=== PATIENT | female | born 1985 | race Caucasian/White ===

== ENCOUNTER 2019-01-24 14:50 | Emergency (ER) | payer SELFPAY ==
[~2019-01-24] VITALS: Ht 154.9 cm; Wt 69.9 kg
--- OUTSIDE RECORDS SUMMARY | 2019-01-24 14:52 | XMS REPORT | Clinical Summary ---
Author Author [facility] Address Unknown Phone Unavailable Care Team Providers Care Psych Social Worker Name Role Phone Asked, No Pcp PCP Unavailable Allergies No Known Allergies Medications Not on file Active Problems Not on file Encounters Care Team Description Date Type Specialty Holden Burnham MD Strep throat (Primary Dx) 04/06/2018 Emergency Emergency Medicine after 01/23/2018 Social History Date Tobacco Use Types Packs/Day Years Used Never Assessed Sex Assigned at Date Recorded Not on file Industry Job Start Date Occupation Not on file Not on file Not on file Travel End Travel History Travel Start No recent travel history available. Last Filed Vital Signs Reading Time Taken Comments Vital Sign 121/80 04/06/2018 7:38 PM SENIOR AUDITOR Blood Pressure 95 04/06/2018 7:38 PM SENIOR AUDITOR Pulse 36.8 C (98.2 F) 04/06/2018 7:38 PM SENIOR AUDITOR Temperature 16 04/06/2018 7:38 PM SENIOR AUDITOR Respiratory Rate 96% 04/06/2018 7:38 PM SENIOR AUDITOR Oxygen Saturation - - Inhaled Oxygen Concentration - - Weight 154.9 cm (5' 1") 04/06/2018 7:38 PM SENIOR AUDITOR Height - - Body Mass Index Plan of Treatment Not on file Results Not on fileafter 01/23/2018 Advance Directives For more information, please contact: [phone] Patient Inner Tube Inserter Explanation Type Date Recorded Advance Directives, Living Will and Medical Power of Minute Clerk
--- OUTSIDE RECORDS SUMMARY | 2019-01-24 14:52 | XMS REPORT | Clinical Summary ---
Author Author [facility] Organization [facility] Address Unknown Phone Unavailable Care Team Providers Care Mechanical Press Operator Name Role Phone PCP Unavailable Allergies No Known Allergies Medications End Date Status Medication Sig Dispensed Refills Start Date Active albuterol 90 Inhale 2 1 Inhaler 0 mcg/actuation Puffs by 8 inhalerIndications: Upper mouth every 4 respiratory tract hours as infection, unspecified needed for type Wheezing or Shortness of Breath. Active loratadine (CLARITIN) 10 Take 1 tablet 28 tablet 0 mg tabletIndications: by mouth 8 Upper respiratory tract daily. infection, unspecified type Active intrauterine copper 1 Device by 0 contraceptive (PARAGARD) Intrauterine 1 380 square mm IUD route daily . Active acetaminophen (TYLENOL) Take 1 tablet 50 tablet 0 500 mg tabletIndications: by mouth 8 Chronic tension-type every 6 hours headache, not intractable as needed for Pain. Active busPIRone (BUSPAR) 15 mg Take 1 tablet 84 tablet 0 tabletIndications: by mouth 2 8 Moderately severe times daily. depression Active DULoxetine (CYMBALTA) 30 Take 1 56 capsule 0 mg delayed release capsule by 8 capsuleIndications: mouth 2 times Moderately severe daily. depression Active traZODone (DESYREL) 100 Take 2 56 tablet 0 mg tabletIndications: tablets by 8 Moderately severe mouth nightly depression at bedtime as needed for Sleep. 02/01/2018 sulfamethoxazole-trimetho Take 1 tablet 14 tablet 0 prim (BACTRIM DS) 800-160 by mouth 2 8 mg per tabletIndications: times daily Urinary tract infection for 7 days. without hematuria, site unspecified 02/08/2018 Discontinued sertraline (ZOLOFT) 50 mg Take 0.5 28 tablet 0 tabletIndications: tablets by 8 Moderately severe mouth daily depression 25 mg times 1 week. Increase to 50 mg thereafter.. 02/04/2018 hydrOXYzine (ATARAX) 25 Take 1 tablet 42 tablet 0 mg tabletIndications: by mouth 3 8 Anxiety times daily as needed for up to 10 days for Anxiety. 03/02/2018 Discontinued sertraline (ZOLOFT) 50 mg Take 0.5 28 tablet 0 tabletIndications: tablets by 8 Moderately severe mouth daily depression 25 mg times 1 week. Increase to 50 mg thereafter.. 02/18/2018 hydrOXYzine (ATARAX) 25 Take 1 tablet 30 tablet 0 mg tabletIndications: INDIRA by mouth 2 8 (generalized anxiety times daily disorder) as needed for up to 10 days for Anxiety. 03/02/2018 Discontinued traZODone (DESYREL) 50 mg Take 1 tablet 28 tablet 0 tabletIndications: by mouth at 8 Moderately severe bedtime depression nightly. 03/23/2018 Discontinued sertraline (ZOLOFT) 50 mg Take 1 tablet 28 tablet 0 tabletIndications: by mouth 8 Moderately severe daily. depression 03/23/2018 Discontinued traZODone (DESYREL) 50 mg Take 1 tablet 28 tablet 0 tabletIndications: by mouth at 8 Moderately severe bedtime depression nightly. 03/05/2018 predniSONE (DELTASONE) 5 Take 6 20 tablet 0 mg tabletIndications: tablets by 8 Upper respiratory tract mouth daily infection, unspecified for 3 days. type 03/12/2018 GUAIFENESIN-DM CR Take 1-2 20 tablet 0 (MUCINEX DM) 30-600 mg tablets up to 8 tabletIndications: Upper twice daily respiratory tract as needed for infection, unspecified cough. type, Wheezing 03/05/2018 Phenylephrine HCl 10 mg Take 1 tablet 12 tablet 0 tabletIndications: Upper by mouth 3 8 respiratory tract times daily infection, unspecified as needed for type up to 3 days (congestion). 04/13/2018 Discontinued traZODone (DESYREL) 100 Take 1 tablet 56 tablet 0 mg tabletIndications: by mouth 8 Moderately severe nightly at depression bedtime as needed for up to 28 days for Sleep Take one or two at bedtime as needed for sleep.. 04/13/2018 Discontinued DULoxetine (CYMBALTA) 30 Take 1 56 capsule 0 mg delayed release capsule by 8 capsuleIndications: mouth 2 times Moderately severe daily for 28 depression days Take one daily for 7 days and then two daily thereafter.. 03/23/2018 Discontinued hydrOXYzine (ATARAX) 25 Take 1 tablet 84 tablet 0 mg tabletIndications: by mouth 3 8 Moderately severe times daily depression as needed for up to 28 days for Itching or Anxiety. 04/13/2018 Discontinued busPIRone (BUSPAR) 15 mg Take 1 tablet 56 tablet 0 tabletIndications: by mouth 2 8 Moderately severe times daily depression for 28 days. Active Problems Problem Noted Date Dental decay 04/13/2018 Leukocytosis 04/02/2018 Numbness and tingling of both lower extremities 03/30/2018 Screening for depression 01/25/2018 Encounters Care Team Description Date Type Specialty Bob Kidd Appointment Related Questions (reminder); Appointment Related Questions 05/10/2018 Telephone Family Practice Marleny Solis Counselor Screening for depression (Primary Dx) 04/13/2018 Office Visit Psychology Rowdy Leung Physician Moderately severe depression (Primary Dx); Dental decay 04/13/2018 Office Visit Family Practice Bob Kidd Appointment Related Questions (reminder) 04/12/2018 Telephone Family Practice 04/06/2018 Emergency Emergency Medicine Emiliana Zepeda 03/30/2018 Clinical Case Social Work Mgt Rowdy Leung Physician Numbness and tingling of both lower extremities (Primary Dx); Screening examination for STD (sexually transmitted disease); Dental decay; Chronic tension-type headache, not intractable 03/30/2018 Office Visit Family Practice Marleny Solis Counselor Anxiety (Primary Dx) 03/23/2018 Office Visit Psychology José Leslie Moderately severe depression 03/23/2018 Office Visit Psychiatry Bob Kidd Appointment Related Questions (reminder) 03/22/2018 Telephone Family Practice Danette Giang Henry, Physician Upper respiratory tract infection, unspecified type (Primary Dx); Wheezing; Moderately severe depression 03/02/2018 Office Visit Family Practice Daniel Gonzalez NP INDIRA (generalized anxiety disorder) (Primary Dx); Moderately severe depression 02/08/2018 Office Visit Family Practice Bob Kidd Appointment Related Questions (reminder) 02/05/2018 Telephone Family Practice Briana Heredia Counselor Mood disorder (Primary Dx); Homelessness 01/25/2018 Clinical Case Psychology Mgt Daniel Gonzalez, MANAGER PRIVACY Urinary tract infection without hematuria, site unspecified (Primary Dx); Anxiety; Moderately severe depression 01/25/2018 Office Visit Family Practice after 01/23/2018 Immunizations Name Administration Dates Next Due PPD 04/13/2018, 03/31/2018, 11/25/2017 Family History Medical History Relation Name Comments Hypertension Father Psychiatry Father Hypertension Mother Psychiatry Mother Relation Name Status Comments Father Alive Mother Alive Social History Date Tobacco Use Types Packs/Day Years Used Current Every Day Smoker Cigarettes 0.5 15 Smokeless Tobacco: Never Used Tobacco Cessation: Ready to Quit: No Comments: states can quit on own Drinks/Week oz/Week Comments Alcohol Use No Sex Assigned at Date Recorded Not on file Industry Job Start Date Occupation Not on file Not on file Not on file Travel End Travel History Travel Start No recent travel history available. Last Filed Vital Signs Reading Time Taken Comments Vital Sign 133/92 04/13/2018 1:24 PM DECORATING INSTRUCTOR Blood Pressure 100 04/13/2018 1:24 PM DECORATING INSTRUCTOR Pulse 36.3 C (97.4 F) 04/13/2018 1:24 PM DECORATING INSTRUCTOR Temperature 18 04/06/2018 6:59 PM DECORATING INSTRUCTOR Respiratory Rate 98% 04/06/2018 6:59 PM DECORATING INSTRUCTOR Oxygen Saturation - - Inhaled Oxygen Concentration 73.5 kg (162 lb) 04/13/2018 1:24 PM DECORATING INSTRUCTOR Weight 154.9 cm (5' 1") 04/13/2018 1:24 PM DECORATING INSTRUCTOR Height 30.61 04/13/2018 1:24 PM DECORATING INSTRUCTOR Body Mass Index Plan of Treatment Health Maintenance Due Date Last Done Comments Cervical Cancer Scrn (3 12/20/2013 12/20/2010 Yrs) IMM Influenza Seasonal 03/01/2019 Oct to July (>/=19 yrs) Procedures Comments Procedure Name Priority Date/Time Associated Diagnosis POC GLUCOSE-FQHC MANUALLY Routine 03/31/2018 Dental decay ENTERED 8:30 AM CDT CHLAMYDIA/GC Routine 03/30/2018 Screening examination for AMPLIFICATION 1:52 PM CDT STD (sexually transmitted disease) TREPONEMA PALLIDUM Routine 03/30/2018 Screening examination for (SYPHILIS) SCREENING 1:52 PM CDT STD (sexually transmitted CASCADE disease) THYROID CASCADE PROFILE Routine 03/30/2018 Numbness and tingling of 1:52 PM CDT both lower extremities HEMOGLOBIN A1C Routine 03/30/2018 Numbness and tingling of 1:52 PM CDT both lower extremities LIPID PANEL Routine 03/30/2018 Numbness and tingling of 1:52 PM CDT both lower extremities CBC WITH Routine 03/30/2018 Numbness and tingling of DIFFERENTIAL/PLATELET 1:52 PM CDT both lower extremities COMPREHENSIVE METABOLIC Routine 03/30/2018 Numbness and tingling of PANEL(14) 1:52 PM CDT both lower extremities POC URINE Routine 01/25/2018 -AFFILIATE 9:51 AM CDT MANUALLY ENTERED POC URINE DIPSTICK W/O Routine 01/25/2018 MICRO-AFFILIATE MANUALLY 9:51 AM CDT ENTERED after 01/23/2018 Results * POC GLUCOSE-FQHC MANUALLY ENTERED (03/31/2018 8:30 AM CDT) GLUCOSE 91 Specimen Blood * COMPREHENSIVE METABOLIC PANEL(14) (03/30/2018 1:52 PM CDT) Glucose, Serum 89 65 - 99 mg/dL [facility] 01 BUN 11 6 - 20 mg/dL [facility] 01 Creatinine, 0.67 0.57 - 1.00 mg/dL [facility] 01 Serum eGFR If 118 >59 mL/min/1.73 [facility] 01 NonAfricn Am eGFR If Africn 136 >59 mL/min/1.73 [facility] 01 Am BUN/Creatinine 16 9 - 23 [facility] 01 Ratio Sodium, Serum 139 134 - 144 mmol/L [facility] 01 Potassium, 4.2 3.5 - 5.2 mmol/L [facility] 01 Serum Chloride, Serum 104 96 - 106 mmol/L [facility] 01 Carbon Dioxide, 21 20 - 29 mmol/L [facility] 01 Total Calcium, Serum 8.9 8.7 - 10.2 mg/dL [facility] 01 Protein, Total, 6.4 6.0 - 8.5 g/dL [facility] 01 Serum Albumin, Serum 4.1 3.5 - 5.5 g/dL [facility] 01 Globulin, Total 2.3 1.5 - 4.5 g/dL [facility] 01 A/G Ratio 1.8 1.2 - 2.2 [facility] 01 Bilirubin, <0.2 0.0 - 1.2 mg/dL [facility] 01 Total Alkaline 73 39 - 117 IU/L [facility] 01 Phosphatase, S AST (SGOT) 16 0 - 40 IU/L [facility] 01 ALT (SGPT) 17 0 - 32 IU/L [facility] 01 Specimen Narrative Performed At Performed at:[address] [place] [address] [facility] [address] [place], [place] [id number] Patient Safety Manager: Antonio Oconnor MD, Phone:[phone] Performing Organization Address City/State/Zipcode Phone Number [facility] [address] [facility], [place] [address] [facility] 01 * CBC WITH DIFFERENTIAL/PLATELET (03/30/2018 1:52 PM CDT) WBC 11.7 (H) 3.4 - 10.8 x10E3/uL [facility] 01 RBC 4.10 3.77 - 5.28 x10E6/uL [facility] 01 Hemoglobin 13.0 11.1 - 15.9 g/dL [facility] 01 Hematocrit 37.9 34.0 - 46.6 % [facility] 01 MCV 92 79 - 97 fL [facility] 01 MCH 31.7 26.6 - 33.0 pg [facility] 01 MCHC 34.3 31.5 - 35.7 g/dL [facility] 01 RDW 13.2 12.3 - 15.4 % [facility] 01 Platelets 288 150 - 379 x10E3/uL [facility] 01 Neutrophils 68 Not Estab. % [facility] 01 Lymphs 25 Not Estab. % [facility] 01 Monocytes 5 Not Estab. % [facility] 01 Eos 2 Not Estab. % [facility] 01 Basos 0 Not Estab. % [facility] 01 Neutrophils 7.9 (H) 1.4 - 7.0 x10E3/uL [facility] 01 (Absolute) Lymphs 2.9 0.7 - 3.1 x10E3/uL [facility] 01 (Absolute) Monocytes(Absol 0.6 0.1 - 0.9 x10E3/uL [facility] 01 vero) Eos (Absolute) 0.3 0.0 - 0.4 x10E3/uL [facility] 01 Baso (Absolute) 0.0 0.0 - 0.2 x10E3/uL [facility] 01 Immature 0 Not Estab. % [facility] 01 Granulocytes Immature Grans 0.0 0.0 - 0.1 x10E3/uL [facility] 01 (Abs) Specimen Blood Narrative Performed At Performed at:[address] [place] [address] [facility] [address] [place], [place] [id number] Patient Safety Manager: Antonio Oconnor MD, Phone:[phone] Performing Organization Address [facility] Phone Number [facility] [address] [place] [address] [facility] 01 * HEMOGLOBIN A1C (03/30/2018 1:52 PM CDT) [facility] Hemoglobin A1c 4.9 4.8 - 5.6 % [facility] 01 Comment: Prediabetes: 5.7 - 6.4 Diabetes: >6.4 Glycemic control for adults with diabetes: <7.0 Specimen Blood Narrative Performed At Performed at:[address] [place] [address] [facility] [address] [place], [place] [id number] Patient Safety Manager: Antonio Oconnor MD, Phone:[phone] Performing Organization Address [facility] Phone Number [facility] [address] [place] [address] [facility] 01 * CHLAMYDIA/GC AMPLIFICATION (03/30/2018 1:52 PM CDT) [facility] Chlamydia Negative Negative [facility] 02 trachomatis, CIRA Neisseria Negative Negative [facility] 02 gonorrhoeae, CIRA Specimen Other (Specify in Comments) - Voided, urine Narrative Performed At Performed at:02 - [facility] [address] [facility], [id number] Patient Safety Manager: Ashley Wolf MD, Phone:[phone] Performing Organization Address [facility] Phone Number [facility] [address] [place], [place] [phone] [facility] 02 * LIPID PANEL (03/30/2018 1:52 PM CDT) Cholestrol, 162 100 - 199 mg/dL [facility] 01 Total Triglyceride 133 0 - 149 mg/dL [facility] 01 HDL 51 >39 mg/dL [facility] 01 VLDL Cholestrol 27 5 - 40 mg/dL [facility] 01 Calc LDL Cholestrol 84 0 - 99 mg/dL [facility] 01 Calc Specimen Narrative Performed At Performed at:01 - [facility] [address] [place], [place] [id number] Patient Safety Manager: Antonio Oconnor MD, Phone:[phone] Performing Organization Address [facility] Phone Number [facility] [address] [place], [place] [phone] [facility] 01 * THYROID CASCADE PROFILE (03/30/2018 1:52 PM CDT) Pathologist [facility] TSH 1.320 0.450 - 4.500 uIU/mL [facility] 01 Specimen Blood Narrative Performed At Performed at: - [facility] [place], [id number] Patient Safety Manager: Antonio Oconnor MD, Phone:[phone] Performing Organization Address [facility] Phone Number [facility] [address] [place], [place] [phone] [facility] 01 * TREPONEMA PALLIDUM (SYPHILIS) SCREENING CASCADE (03/30/2018 1:52 PM CDT) Pathologist [facility] T pallidum Negative Negative [facility] 03 Antibodies Specimen Blood Narrative Performed At Performed at:03 - [facility] [address] [place], [place] [id number] Patient Safety Manager: Jose Ambrose MD, Phone:[phone] Performing Organization Address City/State/Zipcode Phone Number [facility] [address] [facility], [place] [address] [facility] 03 * POC URINE DIPSTICK W/O MICRO-AFFILIATE MANUALLY ENTERED (01/25/2018 9:51 AM CDT) Color POC - - - Clarity POC - - - Spec [place] 1.010 1.005 - 1.030 POC pH POC 7 5.0 - 7.0 Protein POC NEG Neg - Neg Glucose POC NEG Neg - Neg Ketone POC NEG Neg - Neg Bilirubin POC NEG Neg - Neg Nitrate POC NEG Neg - Neg Urobilinogen NORM 0.2 - 1.0 EU/dL POC Leukocyte POC 25 Neg - Neg Blood POC NEG Neg - Neg Specimen Urine * POC URINE -AFFILIATE MANUALLY ENTERED (01/25/2018 9:51 AM CDT) POC NegativeComment: Neg Neg - Neg Pass - Pass Control Specimen after 01/23/2018 Insurance Type Payer Benefit Subscriber ID Effective Phone Address Plan / Dates Group [facility] SELF-PAY SELF-PAY xxxxxxxxx 2018- [phone] [address] [place] [address] Anuradha Osorio Personal/F Self [address] [facility] Gail [place] (Home) [place] [address]
--- OUTSIDE RECORDS SUMMARY | 2019-01-24 14:52 | XMS REPORT ---
Author Author [facility] Address Unknown Phone Unavailable Care Team Providers Care Forestry Pilot Name Role Phone Unavailable Unavailable Problems This patient has no known problems. Allergies, Adverse Reactions, Alerts This patient has no known allergies or adverse reactions. Medications This patient has no known medications. Encounters Start Date/Time End Date/Time Encounter Type Admission Type Attending [facility] Care Department Encounter ID 2018-05-11 00:00:00 2018-05-11 00:00:00 Outpatient [facility] [id number] 2018-04-15 00:00:00 2018-04-15 00:00:00 Outpatient [facility] [id number] 2018-04-13 13:36:49 2018-04-13 13:36:49 Outpatient [facility] [id number] 2018-04-13 13:23:51 2018-04-13 13:23:51 Outpatient [facility] [id number] 2018-04-06 18:58:00 2018-04-06 18:58:00 Emergency [facility] MED [id number]
[2019-01-24] MEDS ORDERED: ONDANSETRON HCL INJ 2MG/ML 2ML 2 MG/ML VIAL IV STA (15:06)
[2019-01-24] MEDS ORDERED: KETOROLAC TROMETHAMINE 30 MG/ML VIAL IV ONE (15:15)
[2019-01-24] MEDS ORDERED: MORPHINE SULFATE INJ 4 MG/ML INJ 1ML IV ONE (15:15)
[2019-01-24] MEDS ORDERED: MORPHINE SULFATE 2 MG/ML SYR 1ML IV ONE (15:15)
[2019-01-24 15:25] LABS: PREGNANCY TEST, URINE NEGATIVE (NEGATIVE)
[2019-01-24 15:26] LABS: BILIRUBIN,URINE NEGATIVE (NEGATIVE); CLARITY,URINE SL CLOUDY (CLEAR); COLOR,URINE YELLOW (YELLOW); KETONES,URINE NEGATIVE (NEGATIVE); LEUKOCYTE ESTERASE ,URINE SMALL (NEGATIVE); NITRITE,URINE NEGATIVE (NEGATIVE); PROTEIN,URINE DIPSTICK TRACE (NEGATIVE); URINE UROBILINOGEN 0.2 mg/dL (0.2 - 1)
[2019-01-24 15:31] LABS: BACTERIA,URINE MODERATE /HPF; WBC,URINE (MAN) 0-5 /HPF (0-5)
[2019-01-24 15:47] LABS: BASOPHILS # (AUTO) 0.1 (0.0-0.1); BASOPHILS % 0.4 % (0.0-1.0); EOSINOPHILS # (AUTO) 0.1 (0.0-0.4); EOSINOPHILS % 0.7 % (0.0-6.0); HEMATOCRIT 45.1 % (34.2-44.1); LYMPHOCYTES # (AUTO) 1.7 (1.0-3.2); LYMPHOCYTES % 10.2 % (18.0-39.1); MEAN CORPUSCULAR HEMOGLOBIN 32.3 pg (28-32); MEAN CORPUSCULAR HGB CONC 35.5 g/dL (31-35); MEAN CORPUSCULAR VOLUME 91.1 fL (81-99); MONOCYTES # (AUTO) 0.6 (0.2-0.8); MONOCYTES % 3.6 % (4.4-11.3); NEUTROPHILS # (AUTO) 14.3 (2.1-6.9); NEUTROPHILS % 84.4 % (38.7-80.0); PLATELET COUNT 308 x10e3/uL (140-360); RED BLOOD COUNT 4.95 x10e6/uL (3.6-5.1); RED CELL DISTRIBUTION WIDTH 12.4 % (11.7-14.4)
[2019-01-24 16:03] LABS: ALANINE AMINOTRANSFERASE 20 IU/L (0-55); ALKALINE PHOSPHATASE 139 IU/L (40-150); BLOOD UREA NITROGEN 8 mg/dL (7-26); BUN/CREATININE RATIO 11 (6-25); CALCIUM 9.8 mg/dL (8.4-10.2); CARBON DIOXIDE 24 mmol/L (22-29); CHLORIDE 99 mmol/L (98-107); CREATININE, SERUM 0.76 mg/dL (0.57-1.11); EST GLOMERULAR FILTRATION RATE > 60 ML/MIN (60-); GLUCOSE 89 mg/dL (74-118); SODIUM 134 mmol/L (136-145)
--- NOTE | 2019-01-24 16:27 | Diagnostic Imaging Report ---
CT Abdomen and Pelvis without contrast INDICATION: Right flank pain for 3 days TECHNIQUE: Thin collimation axial images obtained from the diaphragm to the level of the pubic symphysis without nonionic intravenous contrast. Dose reduction techniques used: Automated exposure control, adjustment of the mAs and/or kVp according to patient size, standardized low-dose protocol, and/or iterative reconstruction technique. RADIATION DOSE: Total DLP: 725.71 mGy*cm Estimated effective dose: (DLP x 0.015 x size factor) mSv CTDIvol has been reviewed. It is below the limits set by the Radiation Protocol Committee (RPC). COMPARISON: None. ABDOMEN FINDINGS: Lung Bases: Clear. The visualized portion of the mediastinum is normal. Liver: Mild steatosis. No evidence of mass. Gallbladder: Present and appears normal. No ductal dilatation. Pancreas: Normal attenuation without mass. Spleen: Normal size without mass. Adrenal Glands: No evidence for mass. Kidneys: Right: 1 to 2 mm calculus in the upper pole. A pixel sized calculus in the interpolar region. 1 to 2 mm calculus in the lower pole. No cortical mass. No perinephric inflammation. No hydronephrosis Left: Pixel sized calculi in the interpolar region and lower pole. 1 to 2 mm calculus in the upper pole. No perinephric inflammation. No cortical mass or hydronephrosis Lymph Nodes: No enlarged abdominal or retroperitoneal lymph nodes. Aorta: Normal in diameter. PELVIS FINDINGS: Bowel: Stomach: Normal in caliber with normal wall thickness. Small Bowel: Normal in caliber with normal wall thickness. Large Bowel: Mild burden of submucosal fat deposition of the cecum and proximal ascending colon. No significant stool burden. No pericolonic inflammation. Appendix: Normal. Bladder: Normal. Ureters: No ureteral dilatation or calculus. The uterus is present contains an intrauterine device in appropriate position. No adnexal mass. Peritoneum/retroperitoneum: No free fluid or fluid collection. Bones: Unremarkable for age. Soft tissues: Fat-containing umbilical and periumbilical hernias. No fluid in the hernia sacs. The periumbilical hernia has an aperture of 2 mm. The umbilical hernia has an aperture of 8 mm. IMPRESSION: 1. Punctate bilateral intrarenal calculi. No obstructive uropathy. 2. Mild steatosis. 3. Fat-containing abdominal wall hernias as described above. Signed by: Dr. Nam Chin MD on 01/24/2019 4:24 PM
[2019-01-24] MEDS ORDERED: HYDROMORPHONE 1MG/1ML INJ IV STA (16:44)
[2019-01-24] MEDS ORDERED: CEFTRIAXONE SOD 1 GM/NS 50 ML 50 ML IV ONE (16:45)
[2019-01-24 17:58] VITALS: BP 146/104
== END 2019-01-24 18:00 | disposition home or self-care (01) ==
LOC: ER 14:50
DX: R10.84 Generalized abdominal pain (principal); R11.0 Nausea; N30.90 Cystitis, unspecified without hematuria; N20.0 Calculus of kidney; N28.89 Other specified disorders of kidney and ureter; K43.9 Ventral hernia without obstruction or gangrene
CPT/HCPCS: 36415; 74176; 80053; 81001; 81025; 83690; 85025; 99284; J0696; J1170; J1885; J2270; J2405